=== PATIENT | male | born 1985 | race Caucasian/White ===

== ENCOUNTER 2018-04-17 17:36 | Emergency (ER) | payer OTHER ==
[2018-04-17 17:43] VITALS: BP 147/76
--- NOTE | 2018-04-17 18:13 | ER Document Report ---
ED GI/ - General Chief Complaint: Abdominal Pain Stated Complaint: RIGHT SIDE PAIN Time Seen by Provider: 04/17/18 18:04 Notes: The patient is a 32-year-old male presents with 1 day of right flank pain and right upper quadrant pain that started at 2 AM and woke him up from sleep. He has never had this pain before. 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 He was also having some nausea and vomiting, but denies fevers, hematuria, dysuria, diarrhea, constipation, rash or chest pain. TRAVEL OUTSIDE OF THE [place] IN LAST 30 DAYS: No - Related Data Allergies/Adverse Reactions: No Known Allergies Allergy (Unverified 04/17/18 17:37) Past Medical History - General Information source: Patient - Social History Smoking Status: Never Smoker Chew tobacco use (# tins/day): No Frequency of alcohol use: None Drug Abuse: None Family History: Reviewed & Not Pertinent Patient has suicidal ideation: No Patient has homicidal ideation: No Renal/ Medical History: Denies: Hx Peritoneal Dialysis Review of Systems - Review of Systems Notes: REVIEW OF SYSTEMS: CONSTITUTIONAL: -fevers, -chills EENT: -eye pain, -difficulty swallowing, -nasal congestion CARDIOVASCULAR: -chest pain, -syncope. RESPIRATORY: -cough, -SOB GASTROINTESTINAL: +right-sided abdominal pain, +nausea, +vomiting, -diarrhea GENITOURINARY: -dysuria, -hematuria MUSCULOSKELETAL: +right flank pain, -neck pain SKIN: -rash or skin lesions. HEMATOLOGIC: -easy bruising or bleeding. LYMPHATIC: -swollen, enlarged glands. NEUROLOGICAL: -altered mental status or loss of consciousness, -headache, - neurologic symptoms PSYCHIATRIC: -anxiety, -depression. ALL OTHER SYSTEMS REVIEWED AND NEGATIVE. Physical Exam - Vital signs Vitals: Temp Pulse Resp BP Pulse Ox 98.6 F 93 16 147/76 H 100 04/17/18 17:40 04/17/18 17:40 04/17/18 17:40 04/17/18 17:40 04/17/18 17:40 - Notes Notes: PHYSICAL EXAMINATION: GENERAL: Well-appearing, well-nourished and in no acute distress. HEAD: Atraumatic, normocephalic. EYES: Pupils equal round and reactive to light, extraocular movements intact, sclera anicteric, conjunctiva are normal. ENT: nares patent, oropharynx clear without exudates. Moist mucous membranes. NECK: Normal range of motion, supple without lymphadenopathy LUNGS: Breath sounds clear to auscultation bilaterally and equal. No wheezes rales or rhonchi. HEART: Regular rate and rhythm without murmurs ABDOMEN: Soft, mild RUQ tenderness, no RLQ tenderness, normoactive bowel sounds. No guarding, no rebound. No masses appreciated. EXTREMITIES: Normal range of motion, no pitting or edema. No cyanosis. BACK: No CVA or back tenderness. NEUROLOGICAL: Cranial nerves grossly intact. Normal speech, normal gait. Normal sensory and motor exams. PSYCH: Normal mood, normal affect. SKIN: Warm, Dry, normal turgor, no rashes or lesions noted. Course - Re-evaluation Re-evalutation: Patient appears well. Right upper quadrant ultrasound and CT abdomen/pelvis did not show any acute intra-abdominal abnormalities. Blood work is unremarkable, other than slight TONJA and slight elevation of his CPK. Instructed him to drink even more water than he normally does. No life- threatening diagnoses found on his workup and will have him follow with his primary care physician for further evaluation and treatment. Given strict return precautions and he understands. - Vital Signs Vital signs: Temp Pulse Resp BP Pulse Ox 98.6 F 93 16 147/76 H 100 04/17/18 17:40 04/17/18 17:40 04/17/18 17:40 04/17/18 17:40 04/17/18 17:40 - Laboratory Result Diagrams: 04/17/18 18:33 04/17/18 18:33 Laboratory results interpreted by me: 04/17/18 04/17/18 18:33 18:33 Sodium 145.2 H Creatinine 1.26 H Direct Bilirubin 0.5 H Creatine Kinase 288 H Urine Ketones TRACE H - Diagnostic Test Radiology reviewed: Image reviewed, Reports reviewed Radiology results interpreted by me: CT A/P: NAD RUQ US: NAD Discharge - Discharge Clinical Impression: Right flank pain Condition: Stable Disposition: HOME, SELF-CARE Additional Instructions: ABDOMINAL PAIN: There are many causes of abdominal pain. Pain can mean a serious problem requiring surgery (such as appendicitis). It can also be an innocent problem that goes away on its own (such as a viral infection). Often, time must pass to determine the cause of pain. The physician does not feel that hospitalization is necessary, at present. Things may change within the next 24 hours. Call the doctor or come back for re- examination if any problems occur, such as: (1) Pain that becomes more severe, steady, or becomes concentrated in one specific area. Also, pain that is more severe with movement or coughing. (2) Vomiting that persists or becomes more frequent. (3) Blood in the vomitus, urine, or bowel movements. Blood in the stool may have a tarry or black appearance. (4) Shaking chills or fever greater than 100 degrees F. (5) The abdomen becomes more distended or swollen. (6) Bowel movements cease. (7) Failure to improve as expected. NORMAL EXAM AND WORKUP: At this time, your examination and workup show no significant abnormality. No significant abnormal physical findings are noted. All laboratory, EKG, and imaging (x-ray, CT scans, ultrasound) studies that were ordered show no significant abnormality. Although your examination and all studies that were ordered showed no significant abnormal finding, there are no examinations and no studies that are 100% accurate. There is always the possibility that some abnormality could exist and not be detected with physical examination or within the limits and capabilities of laboratory and other studies. You should return or follow up as you were instructed on your visit today for further evaluation if your symptoms do not resolve. FOLLOW-UP CARE: If you have been referred to a physician for follow-up care, call the physician s office for an appointment as you were instructed or within the next two days. If you experience worsening or a significant change in your symptoms, notify the physician immediately or return to the Emergency Department at any time for re-evaluation. Flank Pain We weren't able to prove an exact cause for your flank pain. Pain in the flank can be caused by a muscle strain or spasm. Sometimes a kidney stone causes pain, but can't be found on our tests. Infection in the kidney should be evident on a urine test. Early shingles can occasionally cause flank pain, without the rash that proves the diagnosis. On rare occasions, disease of the pancreas, aorta, spleen, or colon can create pain in the flank. At this time, there's no evidence of a dangerous condition, and it seems safe for you to be at home. If the pain goes away and does not come back, no further testing will be needed. If pain persists, or becomes more severe, we may need to repeat some tests or order additional new testing. Blood in the urine, urgency to urinate frequently, and pain that radiates to the groin can indicate a kidney stone. Fever may mean that the pain is due to infection, either of the kidney or the colon (diverticulitis). If your pain is early shingles, you should develop an eruption of blisters in the painful area within a few days. Call the doctor or return if you have pain that is spreading or becoming more severe, pain that does not resolve with time, fever, or any other new symptoms. Prescriptions: Methocarbamol [Robaxin 500 mg Tablet] 500 mg PO Q4H PRN #15 tablet PRN Reason: Naproxen [Naprosyn 250 mg Tablet] 500 mg PO Q12H PRN #14 tablet PRN Reason: Ondansetron [Zofran Odt 4 mg Tablet] 1 - 2 tab PO Q4H PRN #15 tab.rapdis PRN Reason: For Nausea/Vomiting Forms: Elevated Blood Pressure Referrals: [facility] [Outside] - Follow up as needed
[2018-04-17 18:40] LABS: ABSOLUTE EOSINOPHILS # (AUTO) 0.2 10^3/uL (0.0-0.6); ABSOLUTE LYMPHOCYTES (AUTO) 2.1 10^3/uL (0.5-4.7); ABSOLUTE MONOCYTES (AUTO) 0.6 10^3/uL (0.1-1.4); ABSOLUTE NEUT (AUTO) 4.1 10^3/uL (1.7-8.2); BASOPHILS % (AUTO) 0.5 % (0-2); EOSINOPHILS % (AUTO) 2.6 % (0-6); HEMATOCRIT 44.2 % (37.9-51.0); HEMOGLOBIN 14.8 g/dL (13.5-17.0); LYMPHOCYTES % (AUTO) 29.2 % (13-45); MEAN CORPUSCULAR HEMOGLOBIN 31.1 pg (27.0-33.4); MEAN CORPUSCULAR HGB CONC 33.5 g/dL (32.0-36.0); MEAN CORPUSCULAR VOLUME 93 fl (80-97); MONOCYTES % (AUTO) 8.9 % (3-13); PLATELET COUNT 371 10^3/uL (150-450); RED BLOOD COUNT 4.76 10^6/uL (4.35-5.55); RED CELL DISTRIBUTION WIDTH 12.9 % (11.5-14.0); SEGMENTED NEUTROPHILS % (AUTO) 58.8 % (42-78); TOTAL CELLS COUNTED % (AUTO) 100 %; WHITE BLOOD COUNT 7.1 10^3/uL (4.0-10.5)
[2018-04-17 18:46] LABS: APPEARANCE,URINE CLEAR; BILIRUBIN,URINE NEGATIVE (NEGATIVE); COLOR,URINE STRAW; GLUCOSE, URINE NEGATIVE (NEGATIVE); KETONES,URINE TRACE mg/dL (NEGATIVE); LEUKOCYTE ESTERASE,URINE NEGATIVE (NEGATIVE); NITRITE,URINE NEGATIVE (NEGATIVE); PROTEIN,URINE NEGATIVE (NEGATIVE); URINE SPECIFIC GRAVITY 1.005; UROBILINOGEN,URINE NEGATIVE mg/dL (<2.0)
--- NOTE | 2018-04-17 18:46 | RADIOLOGY REPORT (SQ) ---
EXAM DESCRIPTION: CT LTD RENAL STONE PROTOCOL ON COMPLETED DATE/TIME: 04/17/2018 6:27 pm REASON FOR STUDY: right flank pain into groin COMPARISON: None. TECHNIQUE: CT scan of the abdomen and pelvis performed without intravenous or oral contrast. Images reviewed with lung, soft tissue, and bone windows. Reconstructed coronal and sagittal MPR images revi ewed. All images stored on PACS. All CT scanners at this facility use dose modulation, iterative reconstruction, and/or weight based d osing when appropriate to reduce radiation dose to as low as reasonably achievable (ALARA). [facility]: Dose Right [facility]: CareDose [facility]: Dose Right [facility]: Teradose 4D [facility]: [employer] RADIATION DOSE: CT Rad equipment meets quality standard of care and radiation dose reduction techniq ues were employed. CTDIvol: 7.3 mGy. DLP: 393 mGy-cm.mGy. LIMITATIONS: None. FINDINGS: LOWER CHEST: No significant findings. No nodules or infiltrates. NON-CONTRASTED LIVER, SPLEEN, ADRENALS: Evaluation limited by lack of IV contrast. No identified sign ificant masses. PANCREAS: No masses. No peripancreatic inflammatory changes. GALLBLADDER: No identified stones by CT criteria. No inflammatory changes to suggest cholecystitis. RIGHT KIDNEY AND URETER: No suspicious masses. Assessment limited by lack of IV contrast. No signif icant calcifications. No hydronephrosis or hydroureter. LEFT KIDNEY AND URETER: No suspicious masses. Assessment limited by lack of IV contrast. No signifi cant calcifications. No hydronephrosis or hydroureter. AORTA AND RETROPERITONEUM: No aneurysm. No retroperitoneal masses or adenopathy. BOWEL AND PERITONEAL CAVITY: No obvious masses or inflammatory changes. No free fluid. APPENDIX: Normal. PELVIS, BLADDER, AND ABDOMINAL WALL:No abnormal masses. No free fluid. Bladder normal. BONES: Lumbosacral degenerative changes was L5 Schmorl node. OTHER: No other significant finding. IMPRESSION: NO SIGNIFICANT OR ACUTE PROCESS IN THE ABDOMEN OR PELVIS. COMMENT: Quality ID # 436: Final reports with documentation of one or more dose reduction techniques (e.g., Automated exposure control, adjustment of the mA and/or kV according to patient size, use of iterative reconstruction technique) TECHNICAL DOCUMENTATION: JOB ID: [id number] [employer]- All Rights Reserved Reading location - IP/workstation name: [email or web address]
[2018-04-17 18:52] LABS: ALANINE AMINOTRANSFERASE 45 U/L (21-72); ALBUMIN 4.9 g/dL (3.5-5.0); ALKALINE PHOSPHATASE 38 U/L (38-126); ANION GAP 16 (5-19); ASPARTATE AMINO TRANSFERASE 25 U/L (17-59); BILIRUBIN,DIRECT 0.5 mg/dL (0.0-0.4); BILIRUBIN,TOTAL 0.9 mg/dL (0.2-1.3); BLOOD UREA NITROGEN 12 mg/dL (7-20); CALCIUM 9.8 mg/dL (8.4-10.2); CARBON DIOXIDE 30 mmol/L (22-30); CHLORIDE 99 mmol/L (98-107); CREATINE KINASE 288 U/L (55-170); GLUCOSE 89 mg/dL (75-110); LIPASE 76.7 U/L (23-300); POTASSIUM 4.3 mmol/L (3.6-5.0); SODIUM 145.2 mmol/L (137-145); TOTAL PROTEIN 8.1 g/dL (6.3-8.2)
[2018-04-17] MEDS ORDERED: NAPROXEN 250 MG TABLET PO ONE (19:34)
[2018-04-17] MEDS ORDERED: ACETAMINOPHEN 325 MG TABLET PO ONE (19:34)
--- NOTE | 2018-04-17 19:46 | RADIOLOGY REPORT (SQ) ---
EXAM DESCRIPTION: U/S ABDOMEN LIMITED W/O DOP COMPLETED DATE/TIME: 04/17/2018 7:37 pm REASON FOR STUDY: right flank pain, RUQ pain COMPARISON: None. TECHNIQUE: Dynamic and static grayscale images acquired of the abdomen and recorded on PACS. Additio nal selected color Doppler and spectral images recorded. LIMITATIONS: None. FINDINGS: PANCREAS: No masses. Visualized pancreatic duct normal caliber. LIVER: No masses. Echotexture normal. LIVER VASCULATURE: Normal directional flow of the main portal vein and hepatic veins. GALLBLADDER: No stones. Normal wall thickness. No pericholecystic fluid. ULTRASOUND-DETECTED JORDAN'S SIGN: Negative. INTRAHEPATIC DUCTS AND COMMON DUCT: CBD and intrahepatic ducts normal caliber. No filling defects. INFERIOR VENA CAVA: Normal flow. AORTA: No aneurysm. RIGHT KIDNEY: Normal size. Normal echogenicity. No solid or suspicious masses. No hydronephrosis. No calcifications. PERITONEAL AND RIGHT PLEURAL SPACE: No ascites or effusions. OTHER: No other significant findings. IMPRESSION: NORMAL RIGHT UPPER QUADRANT ULTRASOUND. TECHNICAL DOCUMENTATION: JOB ID: [id number]- All Rights Reserved Reading location - IP/workstation name: [email or web address]
[2018-04-17] MEDS ORDERED: ONDANSETRON 4 MG TAB.RAPDIS PO ONE (19:53)
== END 2018-04-17 20:02 | disposition home or self-care (01) ==
LOC: ER 17:36
DX: R10.11 Right upper quadrant pain (principal)
CPT/HCPCS: 99284; 36415; 82550; 83690; 85025; 80053; 81001; 76705; 76380; S0119

== ENCOUNTER 2019-01-31 05:07 | Emergency (ER) | payer OTHER ==
[2019-01-31] MEDS ORDERED: ONDANSETRON HCL INJ/PF 4 MG/2 ML SDV IV ONE (08:37)
[2019-01-31] MEDS ORDERED: KETOROLAC TROMETHAMINE INJ/PF 30 MG/1 ML SDV IV ONE (08:37)
--- NOTE | 2019-01-31 08:40 | ER Document Report ---
ED General - General Chief Complaint: Flank Pain Stated Complaint: FLANK PAIN Time Seen by Provider: 01/31/19 08:30 TRAVEL OUTSIDE OF THE [place] IN LAST 30 DAYS: No - HPI Notes: Patient is a 33-year-old male with no significant past medical history who presents the emergency department complaining of pain in his right flank that will radiate around towards the front intermittently over the past month. P atient states that he does have occasional nausea without any vomiting. He is urinating normally and having normal bowel movements. Denies drug allergies. 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 A couple years ago he did have something similar and had an unremarkable workup at that time here in the emergency department. Denies drug allergies. Denies any headache, fever, URI, sore throat, chest pain, palpitations, syncope, cough, shortness of breath, wheeze, dyspnea, vomiting/diarrhea, urinary retention, dysuria, hematuria, loss of control of bowel or bladder, numbness/tingling, saddle anesthesia, muscle paralysis/weakness, or rash. - Related Data Allergies/Adverse Reactions: No Known Allergies Allergy (Unverified 04/17/18 17:37) Past Medical History - Social History Smoking Status: Never Smoker Family History: Reviewed & Not Pertinent Renal/ Medical History: Denies: Hx Peritoneal Dialysis Review of Systems - Review of Systems -: Yes All other systems reviewed and negative Physical Exam - Vital signs Vitals: Temp Pulse Resp BP Pulse Ox 97.9 F 77 15 146/85 H 97 01/31/19 05:18 01/31/19 05:18 01/31/19 05:18 01/31/19 05:18 01/31/19 05:18 - Notes Notes: PHYSICAL EXAMINATION: GENERAL: Well-appearing, well-nourished and in no acute distress. LUNGS: Breath sounds clear to auscultation bilaterally and equal. No wheezes rales or rhonchi. HEART: Regular rate and rhythm without murmurs, rubs, gallops. ABDOMEN: Soft, nontender, nondistended abdomen. No guarding, no rebound. No m asses appreciated. Normal bowel sounds present. No CVA tenderness bilaterally. No tenderness at McBurney point. Lemus neg. I could not reproduce the pain described by palp. He was able to reproduce with right lateral flexion. Musculoskeletal: Ext's b/l: FROM to passive/active. Strength 5+/5. N/V intact distal. Back: FROM. Strength 5+/5. Non-tender. SLR neg. No foot drop. Extremities: No cyanosis, clubbing, or edema b/l. Peripheral pulses 2+. Capillary refill less than 3 seconds. NEUROLOGICAL: Normal speech, normal gait. PSYCH: Normal mood, normal affect. SKIN: Warm, Dry, normal turgor, no rashes or lesions noted. Course - Re-evaluation Re-evalutation: 01/31/19 10:54 Patient is an afebrile, well-hydrated, 33-year-old male who presents emergency department for kidney stones. Vitals are acceptable without significant tachycardia, tachypnea, or hypoxia. PE is otherwise unremarkable. Patient is n ontoxic-appearing and is tolerating p.o. without difficulty. CBC, CMP, lipase, urinalysis are otherwise unremarkable. See CT scan report. Patient has not had any deterioration or worsening symptoms throughout her stay. No further labs or imaging warranted at this time. Low suspicion/risk for acute appendicitis, bowel obstruction, acute cholecystitis, perforated diverticulitis, incarcerated hernia, pancreatitis, perforated ulcer, peritonitis, sepsis, testicular torsion, or other systemic emergent condition at this time. Patient is aware that his condition can change from initial presentation and he needs to monitor symptoms closely and seek medical attention if any acute changes. I will send him home with a prescription for Means, Zofran, and Flomax. Conservative measures otherwise for symptoms. Recheck with PCM in 2-3 days. Schedule appointment with urology. Return to the ED with any worsening/concerning symptoms otherwise as reviewed in discharge. Patient is in agreement. - Vital Signs Vital signs: Temp Pulse Resp BP Pulse Ox 98.5 F 102 H 20 150/88 H 100 01/31/19 10:24 01/31/19 10:24 01/31/19 10:24 01/31/19 10:24 01/31/19 10:24 - Laboratory Result Diagrams: 01/31/19 09:00 01/31/19 09:00 Laboratory results interpreted by me: 01/31/19 09:00 Eosinophils % 7.4 H Discharge - Discharge Clinical Impression: Kidney stones Condition: Stable Disposition: HOME, SELF-CARE Instructions: Kidney Stone ([facility]) Additional Instructions: Push fluids (i.e. water, cranberry juice) Proper hygenic technique Keep the skin clean Tylenol/ibuprofen as needed Take medications as directed F/u with your PCM in 2-3 days for a recheck Schedule a consult with a Urologist for ongoing/worsening symptoms. Return to the ED with any worsening symptoms and/or development of fever, headache, chest pain, palpitations, syncope, shortness of breath, trouble breathing, abdominal pain, n/v/d, blood in stool/urine, loss of control of bowel/bladder, urinary retention, or other worsening symptoms that are concerning to you. Prescriptions: Hydrocodone/Acetaminophen [Means 5-325 mg Tablet] 1 tab PO BID PRN #6 tablet PRN Reason: Ondansetron [Zofran Odt 4 mg Tablet] 1 - 2 tab PO Q4H PRN #15 tab.rapdis PRN Reason: For Nausea/Vomiting Tamsulosin HCl [Flomax] 0.4 mg PO DAILY #10 cap.er.24h Forms: Elevated Blood Pressure Referrals: [facility] [Provider Group] - Follow up as needed
[2019-01-31 08:53] LABS: APPEARANCE,URINE CLEAR; BILIRUBIN,URINE NEGATIVE (NEGATIVE); COLOR,URINE YELLOW; GLUCOSE, URINE NEGATIVE (NEGATIVE); KETONES,URINE NEGATIVE (NEGATIVE); LEUKOCYTE ESTERASE,URINE NEGATIVE (NEGATIVE); NITRITE,URINE NEGATIVE (NEGATIVE); PROTEIN,URINE NEGATIVE (NEGATIVE); UROBILINOGEN,URINE NEGATIVE mg/dL (<2.0)
[2019-01-31 09:16] LABS: ABSOLUTE EOSINOPHILS # (AUTO) 0.4 10^3/uL (0.0-0.6); ABSOLUTE LYMPHOCYTES (AUTO) 1.6 10^3/uL (0.5-4.7); ABSOLUTE MONOCYTES (AUTO) 0.4 10^3/uL (0.1-1.4); ABSOLUTE NEUT (AUTO) 2.9 10^3/uL (1.7-8.2); BASOPHILS % (AUTO) 0.7 % (0-2); EOSINOPHILS % (AUTO) 7.4 % (0-6); HEMATOCRIT 44.2 % (37.9-51.0); HEMOGLOBIN 15.7 g/dL (13.5-17.0); LYMPHOCYTES % (AUTO) 29.8 % (13-45); MEAN CORPUSCULAR HEMOGLOBIN 32.1 pg (27.0-33.4); MEAN CORPUSCULAR HGB CONC 35.4 g/dL (32.0-36.0); MEAN CORPUSCULAR VOLUME 91 fl (80-97); MONOCYTES % (AUTO) 6.9 % (3-13); PLATELET COUNT 245 10^3/uL (150-450); RED BLOOD COUNT 4.89 10^6/uL (4.35-5.55); RED CELL DISTRIBUTION WIDTH 12.6 % (11.5-14.0); SEGMENTED NEUTROPHILS % (AUTO) 55.2 % (42-78); TOTAL CELLS COUNTED % (AUTO) 100 %; WHITE BLOOD COUNT 5.2 10^3/uL (4.0-10.5)
[2019-01-31 09:32] LABS: ALANINE AMINOTRANSFERASE 28 U/L (21-72); ALBUMIN 4.7 g/dL (3.5-5.0); ALKALINE PHOSPHATASE 64 U/L (38-126); ANION GAP 7 (5-19); ASPARTATE AMINO TRANSFERASE 21 U/L (17-59); BILIRUBIN,DIRECT 0.2 mg/dL (0.0-0.4); BILIRUBIN,TOTAL 0.5 mg/dL (0.2-1.3); BLOOD UREA NITROGEN 16 mg/dL (7-20); CARBON DIOXIDE 29 mmol/L (22-30); CHLORIDE 105 mmol/L (98-107); CREATINE KINASE 140 U/L (55-170); GLUCOSE 99 mg/dL (75-110); LIPASE 58.8 U/L (23-300); POTASSIUM 4.3 mmol/L (3.6-5.0); SODIUM 140.9 mmol/L (137-145); TOTAL PROTEIN 7.7 g/dL (6.3-8.2)
--- NOTE | 2019-01-31 09:46 | RADIOLOGY REPORT (SQ) ---
EXAM DESCRIPTION: CT ABD/PELVIS NO ORAL OR IV COMPLETED DATE/TIME: 01/31/2019 9:27 am REASON FOR STUDY: Rt flank pain COMPARISON: 04/17/2018 TECHNIQUE: CT scan of the abdomen and pelvis performed without intravenous or oral contrast. Images reviewed with lung, soft tissue, and bone windows. Reconstructed coronal and sagittal MPR images revi ewed. All images stored on PACS. All CT scanners at this facility use dose modulation, iterative reconstruction, and/or weight based d osing when appropriate to reduce radiation dose to as low as reasonably achievable (ALARA). [facility]: Dose Right [facility]: CareDose [facility]: Dose Right [facility]: Teradose 4D [facility]: [employer] RADIATION DOSE: CT Rad equipment meets quality standard of care and radiation dose reduction techniq ues were employed. CTDIvol: 7.4 mGy. DLP: 420 mGy-cm. LIMITATIONS: None. FINDINGS: LOWER CHEST: No significant interval changes. NON-CONTRASTED LIVER, SPLEEN, ADRENALS: Evaluation limited by lack of IV contrast. No identified sign ificant masses. PANCREAS: No masses. No peripancreatic inflammatory changes. GALLBLADDER: No identified stones by CT criteria. No inflammatory changes to suggest cholecystitis. RIGHT KIDNEY AND URETER: Mild nephrocalcinosis. No suspicious masses. Assessment limited by lack of IV contrast. No hydronephrosis or hydroureter. LEFT KIDNEY AND URETER: Mild nephrocalcinosis. No suspicious masses. Assessment limited by lack of IV contrast. No hydronephrosis or hydroureter. AORTA AND RETROPERITONEUM: No aneurysm. No retroperitoneal masses or adenopathy. BOWEL AND PERITONEAL CAVITY: No obvious masses or inflammatory changes. No free fluid. APPENDIX: Normal. PELVIS, BLADDER, AND ABDOMINAL WALL: Small stable fat containing umbilical hernia. No free fluid. Very tiny flecks of calcification are suggested along the base of the urinary bladder. Stable phlebo liths in the pelvic region. The prostate gland is stable in appearance. BONES: The osseous structures are stable in appearance. Schmorl's node along the inferior endplate of the L5 vertebra, stable finding. OTHER: No other significant finding. IMPRESSION: 1. Bilateral nephrocalcinosis. No evidence of hydronephrosis. 2. Very tiny flecks of calcification are suggested along the base of the urinary bladder. 3. Stable small fat containing umbilical hernia. 4. Additional stable findings as above. COMMENT: Quality ID # 436: Final reports with documentation of one or more dose reduction techniques (e.g., Automated exposure control, adjustment of the mA and/or kV according to patient size, use of iterative reconstruction technique) TECHNICAL DOCUMENTATION: JOB ID: [id number] [employer]- All Rights Reserved Reading location - IP/workstation name: [email or web address]
[2019-01-31 10:24] VITALS: BP 150/88
== END 2019-01-31 11:19 | disposition home or self-care (01) ==
LOC: ER 05:07
DX: N20.0 Calculus of kidney (principal); R10.9 Unspecified abdominal pain; R11.0 Nausea
CPT/HCPCS: 99284; 96374; 96375; 36415; 82550; 83690; 85025; 80053; 81001; 74176; J1885; J2405

== ENCOUNTER 2019-04-01 11:33 | Emergency (ER) | payer OTHER ==
--- NOTE | 2019-04-01 12:56 | ER Document Report ---
ED Medical Screen (RME) - General Chief Complaint: Chest Pain Stated Complaint: CHEST PAIN Time Seen by Provider: 04/01/19 12:41 Notes: Patient is a 33-year-old male who presents to the emergency department for chest pain. Patient states that last he did have what he calls a panic attack. Patient does have a history of anxiety in which he used to take Zoloft for years ago but does not currently. Patient states he has been under a lot of stress. Patient states that since then the chest heaviness has continued. Patient states that the chest heaviness starts in the center and radiates into the left shoulder and left arm. Patient states when the pain increases he feels short of breath. Patient reports the pain as a dull aching. Patient states that belching provides a brief relief. Denies acid reflux. Patient denies na usea vomiting or diarrhea. Patient denies any medical or surgical history. Patient denies injury. She denies fever. Patient denies cough, cold, recent illness. TRAVEL OUTSIDE OF THE [place] IN LAST 30 DAYS: No - Related Data Allergies/Adverse Reactions: No Known Allergies Allergy (Unverified 04/17/18 17:37) Past Medical History Renal/ Medical History: Denies: Hx Peritoneal Dialysis Past Surgical History: Reports: Hx Orthopedic Surgery Physical Exam - Vital signs Vitals: Temp Pulse Resp BP Pulse Ox 97.6 F 105 H 24 H 143/76 H 100 04/01/19 11:40 04/01/19 11:40 04/01/19 11:40 04/01/19 11:40 04/01/19 11:40 Interpretation: Tachycardic - Respiratory Respiratory status: No respiratory distress Chest status: Nontender Breath sounds: Normal Chest palpation: Normal - Cardiovascular Rhythm: Regular Heart sounds: Normal auscultation, S1 appreciated, S2 appreciated Notes: Nonreproducible chest pain with palpation Course - Re-evaluation Re-evalutation: 04/01/19 12:55 Patient is nontoxic-appearing in triage. Patient is in no acute distress. Will initiate work-up. I have greeted and performed a rapid initial assessment of this patient. A comprehensive ED assessment and evaluation of the patient, analysis of test results and completion of the medical decision making process will be conducted by additional ED providers. - Vital Signs Vital signs: Temp Pulse Resp BP Pulse Ox 97.6 F 105 H 24 H 143/76 H 100 04/01/19 11:40 04/01/19 11:40 04/01/19 11:40 04/01/19 11:40 04/01/19 11:40
--- NOTE | 2019-04-01 13:13 | RADIOLOGY REPORT (SQ) ---
EXAM DESCRIPTION: CHEST 2 VIEWS COMPLETED DATE/TIME: 04/01/2019 1:05 pm REASON FOR STUDY: chest pain COMPARISON: None. EXAM PARAMETERS: NUMBER OF VIEWS: two views TECHNIQUE: Digital Frontal and Lateral radiographic views of the chest acquired. RADIATION DOSE: NA LIMITATIONS: none FINDINGS: LUNGS AND PLEURA: No opacities, masses or pneumothorax. No pleural effusion. MEDIASTINUM AND HILAR STRUCTURES: No masses or contour abnormalities. HEART AND VASCULAR STRUCTURES: Heart normal size. No evidence for failure. BONES: No acute findings. HARDWARE: None in the chest. OTHER: No other significant finding. IMPRESSION: NO ACUTE RADIOGRAPHIC FINDING IN THE CHEST. TECHNICAL DOCUMENTATION: JOB ID: [id number] [employer]- All Rights Reserved Reading location - IP/workstation name: [email or web address]
[2019-04-01 13:38] LABS: ABSOLUTE EOSINOPHILS # (AUTO) 0.3 10^3/uL (0.0-0.6); ABSOLUTE LYMPHOCYTES (AUTO) 1.9 10^3/uL (0.5-4.7); ABSOLUTE MONOCYTES (AUTO) 0.4 10^3/uL (0.1-1.4); ABSOLUTE NEUT (AUTO) 3.9 10^3/uL (1.7-8.2); BASOPHILS % (AUTO) 0.5 % (0-2); EOSINOPHILS % (AUTO) 4.8 % (0-6); HEMOGLOBIN 15.4 g/dL (13.5-17.0); MEAN CORPUSCULAR HEMOGLOBIN 31.1 pg (27.0-33.4); MEAN CORPUSCULAR HGB CONC 35.1 g/dL (32.0-36.0); MEAN CORPUSCULAR VOLUME 89 fl (80-97); MONOCYTES % (AUTO) 6.7 % (3-13); PLATELET COUNT 236 10^3/uL (150-450); RED BLOOD COUNT 4.96 10^6/uL (4.35-5.55); RED CELL DISTRIBUTION WIDTH 11.8 % (11.5-14.0); TOTAL CELLS COUNTED % (AUTO) 100 %; WHITE BLOOD COUNT 6.5 10^3/uL (4.0-10.5)
[2019-04-01 14:00] LABS: ANION GAP 10 (5-19); BLOOD UREA NITROGEN 14 mg/dL (7-20); CALCIUM 10.1 mg/dL (8.4-10.2); CARBON DIOXIDE 26 mmol/L (22-30); CHLORIDE 105 mmol/L (98-107); GLUCOSE 98 mg/dL (75-110); POTASSIUM 4.5 mmol/L (3.6-5.0); SODIUM 141.2 mmol/L (137-145)
--- NOTE | 2019-04-01 16:42 | ER Document Report ---
ED General - General Chief Complaint: Chest Pain Stated Complaint: CHEST PAIN Time Seen by Provider: 04/01/19 12:41 Mode of Arrival: Ambulatory Information source: Patient TRAVEL OUTSIDE OF THE [place] IN LAST 30 DAYS: No - HPI Patient complains to provider of: Chest pain, dizziness, shortness of breath, left arm discomfort Onset: Just prior to arrival Onset/Duration: Sudden Quality of pain: Pressure Severity: Moderate Pain Level: 3 Associated symptoms: None Exacerbated by: Denies Relieved by: Denies Similar symptoms previously: No Recently seen / treated by doctor: No Notes: 33-year-old male coming in today chief complaint of episode of left- sided chest pressure, left arm discomfort, dizziness, shortness of breath. The symptoms started acutely at work today. He was not under any exertion. He states he had a similar episode last week but felt about the same. Last about 5 minutes. Did not get diaphoretic. Patient does mention that when he was younger he had some issues with panic attack. He is not on any antidepressants or any anti-anxiety medications at this time. Does not relate any specific event that could have triggered such an event. - Related Data Allergies/Adverse Reactions: No Known Allergies Allergy (Unverified 04/17/18 17:37) Past Medical History - General Information source: Patient - Social History Smoking Status: Never Smoker Frequency of alcohol use: None Drug Abuse: None Family History: Reviewed & Not Pertinent Patient has suicidal ideation: No Patient has homicidal ideation: No - Past Medical History Cardiac Medical History: Reports: None Renal/ Medical History: Denies: Hx Peritoneal Dialysis Past Surgical History: Reports: Hx Orthopedic Surgery Review of Systems - Review of Systems Notes: Constitutional: No fevers. No chills. EENT: No eye redness. No eye pain. No ear pain. No sore throat. Cardiovascular: Positive for chest pressure. Negative for palpitations Respiratory: No cough. Positive for shortness of breath. No respiratory distress. Gastrointestinal: No abdominal pain. No nausea, vomiting, or diarrhea. Genitourinary: Atraumatic. No lesions. No pain. No discharge. Musculoskeletal: Atraumatic. No swelling. No deformities. Skin: No rash or lesions. Lymphatic: No swollen lymph nodes. Neurologic: No headache. No syncope. Psychiatric: No suicidal or homicidal ideation. Physical Exam - Vital signs Vitals: Temp Pulse Resp BP Pulse Ox 97.6 F 105 H 24 H 143/76 H 100 04/01/19 11:40 04/01/19 11:40 04/01/19 11:40 04/01/19 11:40 04/01/19 11:40 - Notes Notes: General: Well-developed, well-nourished. In no acute distress. Non-toxic appearing. Cardiac: Well-perfused. Regular rate and rhythm. No murmurs, rubs, or gallops. Pulmonary: No respiratory distress. No cyanosis. Bilateral lung fiels are clear to auscultation. Abdominal: Non-distended. Non-rigid. Bowels sounds are present in all four quadrants. No guarding or rebound. HEENT: Head is atraumatic. Conjunctivae not reddened. No tearing. PERRL. EOMI. Orbits atraumatic. No periorbital swelling or erythema. Oropharynx is without erythema, swelling, or exudates. Neck: Supple. No adenopathy. No meningismus. Dermatologic: Warm with good turgor. No rash. Atraumatic. Chest: Atraumatic. No chest wall tenderness to palpation. Musculoskeletal: Moves all extremities well. No range of motion deficits. no muscular or joint tenderness. No paraspinal muscle tenderness. no midline spinal tenderness or step-off. Genitourinary: Examination deferred Neurologic: No gross neurologic deficits. Psychiatric: Normal mood. Course - Re-evaluation Re-evalutation: 04/01/19 16:39 Heart score 0. PERC positive because of mild tachycardia. Wells score of 1.5. Will encourage patient to follow-up outpatient with the clinic to get his stress test done as an outpatient. - Vital Signs Vital signs: Temp Pulse Resp BP Pulse Ox 97.6 F 105 H 24 H 143/76 H 100 04/01/19 11:40 04/01/19 11:40 04/01/19 11:40 04/01/19 11:40 04/01/19 11:40 - Laboratory Result Diagrams: 04/01/19 13:24 04/01/19 13:24 - EKG Interpretation by Tn EKG shows normal: Sinus rhythm, [place], Intervals, QRS Complexes, ST-T Waves Discharge - Discharge Clinical Impression: Chest pain Qualifiers: Chest pain type: unspecified Qualified Code(s): R07.9 - Chest pain, unspecified Condition: Good Disposition: HOME, SELF-CARE Instructions: Chest Pain of Unclear Cause ([facility]) Additional Instructions: If you have another episode similar to this and you feel you need to be seen, please do not hesitate to return if you need to for any spells like when he had today. We will try you on Ativan 1 mg tablet to see if the symptoms improve. If the symptoms do not adrian on Ativan please do not hesitate to come back if you need to. If you do not have any further episodes, I still would like for [place] or with the clinic that I provide you to have an outpatient stress test completed just to be absolutely sure this is not cardiac in origin. Prescriptions: Lorazepam [Ativan 1 mg Tablet] 1 mg PO Q6HP PRN #[id number] tab PRN Reason: Referrals: [facility] [Provider Group] - Follow up as needed
[2019-04-01 16:56] VITALS: BP 136/74
--- NOTE | 2019-04-01 19:15 | EKG REPORT ---
SEVERITY:- NORMAL ECG - SINUS RHYTHM : Confirmed by: Lynda Bunch MD 01-Apr-2019 19:14:03
== END 2019-04-01 16:55 | disposition home or self-care (01) ==
LOC: ER 11:33
DX: R07.89 Other chest pain (principal); R42 Dizziness and giddiness; R06.02 Shortness of breath; R00.0 Tachycardia, unspecified
CPT/HCPCS: 36415; 71046; 80048; 84484; 85025; 93005; 93010; 99285